=== PATIENT | female | born 1960 ===

== ENCOUNTER 2023-03-29 05:00 | Day surgery (SDC) | payer OTHER | END 2023-03-29 11:20 | disposition home or self-care (01) | LOC: AMB-ENDOS 05:00 | PROVIDERS: ATTEND Colon & Rectal Surgery | DX: D12.2 Benign neoplasm of ascending colon (principal); K57.30 Diverticulosis of large intestine without perforation or abscess without bleeding; R19.5 Other fecal abnormalities; Z20.822 Contact with and (suspected) exposure to COVID-19 ==